=== PATIENT | male | born 1950 | race Caucasian/White ===

== ENCOUNTER 2022-05-28 08:50 | Outpatient (RCR) | payer OTHER, SELFPAY ==
[2022-05-18 10:16] LABS: Appearance Urine Clear (Clear); Bilirubin Urine Negative (Negative); Blood Urine Negative (Negative); Color Urine Yellow (Yellow); Glucose Urine UA 2+ mg/dL (Negative); Ketones Urine Negative (Negative); Leukocyte Esterase Ur Negative LEU/UL (NEGATIVE); Nitrate Urine Negative (Negative); Protein Urine Trace mg/dL (Negative); Urobilinogen Urine 0.2 mg/dL (<2.0)
[2022-05-18 10:21] LABS: Anion Gap 12 mmol/L (8-16); Blood Urea Nitrogen 16 mg/dL (9-20); Calcium 9.1 mg/dL (8.4-10.2); Carbon Dioxide 29 mmol/L (22-30); Chloride 106 mmol/L (98-107); Estimated Glomerular Filt Rate 60; Glucose 128 mg/dL (65-110); Potassium 3.6 mmol/L (3.4-5.0); Sodium 147 mmol/L (137-145)
[2022-05-18 10:39] LABS: Bacteria Urine Trace /hpf; Mucus Urine Rare /lpf; RBC Urine 0-2 /hpf (0-2); WBC Urine 0-3 /hpf (0-3)
[2022-05-18 10:40] LABS: Add Urine Microscopic? YES
[2022-05-21 09:42] LABS: Appearance Urine Clear (Clear); Bilirubin Urine Negative (Negative); Blood Urine Negative (Negative); Color Urine Yellow (Yellow); Glucose Urine UA 3+ mg/dL (Negative); Ketones Urine Negative (Negative); Leukocyte Esterase Ur Negative LEU/UL (NEGATIVE); Nitrate Urine Negative (Negative); Protein Urine 1+ mg/dL (Negative); Specific Grav Ur 1.015 (1.001-1.035)
[2022-05-21 09:51] LABS: Anion Gap 17 mmol/L (8-16); Blood Urea Nitrogen 22 mg/dL (9-20); Calcium 9.8 mg/dL (8.4-10.2); Carbon Dioxide 27 mmol/L (22-30); Chloride 101 mmol/L (98-107); Estimated Glomerular Filt Rate 54; Glucose 79 mg/dL (65-110); Potassium 3.4 mmol/L (3.4-5.0); Sodium 145 mmol/L (137-145)
[2022-05-21 10:11] LABS: Mucus Urine Rare /lpf; RBC Urine 0-2 /hpf (0-2); WBC Urine 0-3 /hpf (0-3)
[2022-05-21 10:48] LABS: Add Urine Microscopic? YES
[2022-05-25 10:16] LABS: Appearance Urine Clear (Clear); Bacteria Urine Trace /hpf; Bilirubin Urine Negative (Negative); Blood Urine Negative (Negative); Color Urine Yellow (Yellow); Glucose Urine UA 3+ mg/dL (Negative); Ketones Urine Negative (Negative); Leukocyte Esterase Ur Negative LEU/UL (NEGATIVE); Nitrate Urine Negative (Negative); Protein Urine Trace mg/dL (Negative); RBC Urine 0-2 /hpf (0-2); Urobilinogen Urine 0.2 mg/dL (<2.0); WBC Urine 0-3 /hpf (0-3); pH Urine 5.5 (5.0-9.0)
[2022-05-25 10:17] LABS: Add Urine Microscopic? YES
[2022-05-25 10:20] LABS: Anion Gap 11 mmol/L (8-16); Blood Urea Nitrogen 22 mg/dL (9-20); Calcium 8.9 mg/dL (8.4-10.2); Carbon Dioxide 24 mmol/L (22-30); Chloride 107 mmol/L (98-107); Estimated Glomerular Filt Rate 50; Glucose 185 mg/dL (65-110); Potassium 3.5 mmol/L (3.4-5.0); Sodium 142 mmol/L (137-145)
[2022-05-28 09:25] LABS: Appearance Urine Clear (Clear); Bilirubin Urine Negative (Negative); Blood Urine Negative (Negative); Color Urine Yellow (Yellow); Glucose Urine UA 2+ mg/dL (Negative); Ketones Urine Negative (Negative); Leukocyte Esterase Ur Negative LEU/UL (NEGATIVE); Nitrate Urine Negative (Negative); Protein Urine Trace mg/dL (Negative); Specific Grav Ur 1.015 (1.001-1.035); pH Urine 5.5 (5.0-9.0)
[2022-05-28 09:36] LABS: Mucus Urine Rare /lpf; RBC Urine 0-2 /hpf (0-2); WBC Urine 0-3 /hpf (0-3)
[2022-05-28 09:37] LABS: Add Urine Microscopic? YES
[2022-05-28 09:41] LABS: Anion Gap 14 mmol/L (8-16); Blood Urea Nitrogen 15 mg/dL (9-20); Calcium 8.9 mg/dL (8.4-10.2); Carbon Dioxide 26 mmol/L (22-30); Chloride 106 mmol/L (98-107); Estimated Glomerular Filt Rate 46; Glucose 146 mg/dL (65-110); Potassium 3.7 mmol/L (3.4-5.0); Sodium 146 mmol/L (137-145)
== END 2022-08-16 23:59 | disposition home or self-care (01) ==
LOC: ANHLAB 08:50
PROVIDERS: Referring Provider Internal Medicine Endocrinology, Diabetes & Metabolism
DX: D35.2 Benign neoplasm of pituitary gland (principal)
CPT/HCPCS: 36415; 80048; 81001

== ENCOUNTER 2022-12-18 22:01 | Emergency (ER) | payer MEDICARE, OTHER, SELFPAY ==
[2022-12-18] VITALS (11 sets, daily range): BP systolic 73–135; BP diastolic 42–95; PULSE 69–88; RESP 16–26; TEMP 35.5; O2SAT 96–98
--- NOTE | ~2022-12-18 | XR_ITS ---
EXAMINATION: XR chest 1V portable DATE: 12/18/2022 22:39 INDICATION: Dyspnea. TECHNIQUE: A single frontal view of the chest was obtained. COMPARISON: Chest single view 02/17/2015 FINDINGS: There is mild atelectasis in the lower lung zones. No pleural effusion or pneumothorax. The heart size is normal. Median sternotomy wires and mediastinal surgical clips are seen, likely from p rior coronary artery bypass grafting. IMPRESSION: 1. Mild atelectasis in the lower lung zones. Reviewed, dictated and finalized at location E.
--- NOTE | 2022-12-18 22:13 | PC.NURSE ---
Pt taken back to room and with blood draw Blood glucose of 47 resulted at bedside.
[2022-12-18 22:18] LABS: Glucose Point of Care 47 mg/dl (65-105)
[2022-12-18 22:25] LABS: Glucose Point of Care 206 mg/dl (65-105)
--- NOTE | 2022-12-18 22:28 | ECG_ITS ---
Measurements Intervals [place] Rate: 73 P: 24 W[place]: 242 QRS: -32 QRSD: 107 T: 78 QT: 413 QTc: 457 Interpretive Statements SINUS RHYTHM WITH FIRST DEGREE AV BLOCK MARKED LEFT AXIS DEVIATION [QRS AXIS < -30] PATTERN CONSISTENT WITH PULMONARY DISEASE NONSPECIFIC T-WAVE ABNORMALITY NO PREVIOUS ECG AVAILABLE FOR COMPARISON Electronically Signed On 12-19-2022 12:14:55 CDT by Ann Marie Luis M.D.
[2022-12-18] MEDS: IPRATROPIUM BR 0.02% INH SOLN 0.5 MG/2.5 ML VIAL INHALATION (22:38)
[2022-12-18] MEDS: LEVALBUTEROL NEB 1.25 MG/3 ML INHALATION (22:38)
[2022-12-18] MEDS: DEXTROSE 50% 25 GM/50 ML SYRINGE IV PUSH (22:40)
--- NOTE | 2022-12-18 22:40 | ED.SOB ---
HPI - SOB/Dyspnea General Chief Complaint: Shortness of Breath/Dyspnea Stated Complaint: SOB, dizzy Time Seen by Provider: 12/18/22 22:18 History of Present Illness HPI Narrative: This is a 72-year-old male with past history of coronary artery disease, diabetes, who presents emergency department complaining of general malaise and shortness of breath for the past 2 days. He denies associated chest pain. He has had dry cough and some nausea with one episode of vomiting. Related Data Allergies Allergy/AdvReac Type Severity Reaction Status Date / Time labetalol Allergy Severe Unknown Verified 12/18/22 22:02 lisinopril Allergy Unknown Unknown Verified 12/18/22 22:02 Review of Systems Review of Systems: CONSTITUTIONAL: Denies fever, chills, or sweats. CARDIOVASCULAR: Denies chest pain, palpitations, or edema. RESPIRATORY: Cough with shortness of breath GASTROINTESTINAL: Denies abdominal pain, nausea, vomiting, or diarrhea. GENITOURINARY: Denies dysuria or hematuria. SKIN: Denies rash or itching. MUSCULOSKELETAL: Denies back pain, joint pain, or myalgia. NEUROLOGIC: Denies headache, numbness, dizziness, or weakness. PSYCHIATRIC: Denies anxiety or depression. PMFSH Past Medical History Medical History Coronary artery disease Diabetes mellitus Hypertension Surgical History Surgical History Hx of CABG Social History Social History (Updated 12/18/22 @ 22:44 by Collin Carballo MD) Smoking status: Former smoker Alcohol intake: current Substance use: never Exam Narrative: GENERAL: Well-developed, well-nourished, and in no acute distress. HEAD: Normocephalic, atraumatic. EYES: PERRLA and EOMI. ENT: Nares clear, no rhinorrhea or epistaxis. Mucous membranes moist. Oropharynx without tonsillar hypertrophy exudate or other lesions. NECK: Supple. No adenopathy or masses. No carotid bruits or JVD CHEST: Transmitted conscious vocal airway sounds. Otherwise clear to auscultation. No respiratory distress. No wheezes rales or rhonchi HEART: Regular rate and rhythm. No murmur heard. Normal peripheral pulses. ABDOMEN: Soft, nontender, nondistended, normal active bowel sounds. EXTREMITIES: Normal range of motion. 1+ bilateral lower extremity edema. SKIN: Warm, dry, no rash. NEURO: No focal deficits. Alert and oriented x3. PSYCH: Normal mood and affect. Course Course Emergency Course: 22:20 - Prior to my evaluation, nursing staff noted the patient was hypoglycemic to 47. On arrival he appeared diaphoretic with a systolic pressure in the 70s. He was given an amp of dextrose. 22:35 - During my evaluation, the patient appeared improved. Repeat blood pressure measured 110/82 followed by systolic 130s. Fingerstick glucose 206. 23:40 - Repeat fingerstick 98. Chest xray not concerning for acute cardiothoracic process. 00:22 - Chemistries demonstrate hyperglycemia, but are otherwise unremarkable. WBC elevated; I suspect this is stress response from hypoglycemia. Troponin negative. EKG not concerning for ischemia. On reevaluation, the patient complains of some headache but otherwise feels improved. Discussed findings and recommendations to follow-up with his primary care doctor about adjusting home diabetes medications. Discussed return and emergency precautions including signs/symptoms of hypoglycemia and ACS. The patient voiced understanding and is comfortable with the plan. All questions answered to his satisfaction. Vital Signs Vital signs: Vital Signs Temperature 96 F L 12/18/22 22:07 Pulse Rate 69 12/18/22 22:07 Respiratory Rate 24 H 12/18/22 22:07 Blood Pressure 73/42 L 12/18/22 22:07 Pulse Oximetry 97 12/18/22 22:07 Oxygen Delivery Room Air 12/18/22 22:07 Temperature 96 F L 12/18/22 22:07 Pulse Rate 76 12/19/22 00:31 Respiratory Rate 21 H 12/19/22 00:31 Blood Press
[2022-12-18 22:41] LABS: Basophils Absolute Auto 0.1 K/mm3 (0.0-0.1); Basophils Percent Auto 0.6 % (0.2-1.2); Eosinophils Absolute Auto 0.2 K/mm3 (0-0.3); Eosinophils Percent Auto 1.3 % (0-4.4); Hematocrit 38.4 % (42.0-52.0); Hemoglobin 12.7 g/dL (14.0-18.0); Immature Granulocyte Absolute 0.06 K/mm3 (0.00-0.031); Immature Granulocyte Percent A 0.4 % (0-0.5); Lymphocytes Percent Auto 21.5 % (18.3-44.2); Mean Corpuscular HGB Conc 33.1 g/dl (32-36); Mean Corpuscular Hemoglobin 28.3 pg (26-34); Mean Corpuscular Volume 85.5 fl (80-100); Monocytes Absolute Auto 1.1 K/mm3 (0.1-0.6); Monocytes Percent Auto 7.7 % (2.6-8.5); Neutrophils Absolute Auto 9.6 K/mm3 (1.3-6.7); Neutrophils Percent Auto 68.5 % (45.5-73.1); Platelet Count Result 315 k/mm3 (150-375); Red Blood Count 4.49 M/mm3 (4.6-6.20); Red Cell Distribution Width 16.4 % (11.5-14.5)
[2022-12-18 23:00] LABS: Alanine Aminotransferase 16 U/L (6-50); Alkaline Phosphatase 95 U/L (38-126); Anion Gap 9 mmol/L (8-16); Aspartate Amino Transferase 22 U/L (17-59); Bilirubin,Total 0.7 mg/dL (0.2-1.3); Blood Urea Nitrogen 17 mg/dL (9-20); Carbon Dioxide 28 mmol/L (22-30); Chloride 104 mmol/L (98-107); Estimated Glomerular Filt Rate 60; Glucose 52 mg/dL (65-110); Magnesium 2.2 mg/dL (1.6-2.3); Potassium 3.5 mmol/L (3.4-5.0); Sodium 141 mmol/L (137-145)
[2022-12-18 23:08] LABS: Troponin I < 0.012 ng/mL (0.000-0.034)
--- NOTE | 2022-12-18 23:18 | PC.NURSE ---
This RN took care of pt at 2318.
[2022-12-18 23:37] LABS: Glucose Point of Care 98 mg/dl (65-105)
--- NOTE | 2022-12-18 23:37 | PC.NURSE ---
Patients repeat BG was 98. ERP notified.
[2022-12-18] MEDS: ONDANSETRON INJ 4 MG/2 ML VIAL IV PUSH (23:53)
[2022-12-19 00:31] VITALS: BP 143/95; PULSE 76; RESP 21; O2SAT 96
[2022-12-19] MEDS: ACETAMINOPHEN 500 MG TABLET 1000 MG PO (00:33)
== END 2022-12-19 01:08 | disposition home or self-care (01) ==
PROVIDERS: Emergency Provider Preventive Medicine Aerospace Medicine
DX: E11.649 Type 2 diabetes mellitus with hypoglycemia without coma (principal); I25.10 Atherosclerotic heart disease of native coronary artery without angina pectoris; I10 Essential (primary) hypertension; Z95.1 Presence of aortocoronary bypass graft; Z87.891 Personal history of nicotine dependence; R94.31 Abnormal electrocardiogram [ECG] [EKG]
CPT/HCPCS: 36415; 71045; 80053; 82948; 83735; 84484; 85025; 93005; 94640; 96374; 96375; 99284; A9270; J2405

== ENCOUNTER 2022-12-19 17:07 | Emergency (ER) | payer MEDICARE, OTHER, SELFPAY ==
[2022-12-19] VITALS (17 sets, daily range): BP systolic 120–144; BP diastolic 67–85; PULSE 45–88; RESP 17–24; TEMP 36.4; O2SAT 95–100
--- NOTE | ~2022-12-19 | CT_ITS ---
EXAMINATION: CTA chest PE protocol DATE: 12/19/2022 19:23 INDICATION: Shortness of breath TECHNIQUE: Computed tomography (CT) pulmonary angiogram of the chest was performed with 100 mL Omnipa que-350 intravenous contrast. Additional 3D reconstructions utilizing coronal maximum intensity proje ction (MIP) were performed. Automated exposure control and iterative reconstruction technique were em ployed. The dose-length product was 925.96 mGy-cm. COMPARISON: None FINDINGS: Excellent contrast opacification of the pulmonary arteries. There is mild streak artifact from dense contrast in the superior vena cava and right atrium. Moderate scattered respiratory motion artifact m ost prominent in the bilateral lower lung zones and dependent midlung zone where it decreases sensiti vity in the smaller subsegmental pulmonary arteries. No pulmonary embolism identified. Very small dep endently layering right pleural effusion minimal to mild dependent atelectasis in bilateral lower lob es. There is bulky mediastinal and right hilar lymphadenopathy. There are additional enlarged lymph n odes along the bilateral lower jugular chains, the largest on the right measuring 5.8 x 4.5 cm most s uspicious for lymphoma with differential including other metastatic disease. Cardiomegaly. Atheroscle rotic coronary artery calcifications. Venous sternotomy wires and changes of prior coronary artery by pass grafting. Thoracic aorta is normal in caliber with no dissection. There are few tiny calcified g allstones in the dependent aspect of the otherwise normal-appearing gallbladder. Reflux of contrast i nto the inferior vena cava and central hepatic veins consistent with tricuspid regurgitation. A few b ilateral <2 mm nonobstructing renal stones. 3.7 cm exophytic lesion at the mid left kidney with heter ogeneous greater than simple fluid attenuation suspicious for renal cell carcinoma. There are few cintia ateral smaller low-attenuation renal cysts. There is calcified atherosclerosis of the aorta and many of the other arteries. There appears to be a severe, >70% stenosis at the origin of the dominant left renal artery. There is a smaller caliber accessory left renal artery supplying the upper pole. Bilat eral gynecomastia. There are bridging osteophytes at multiple levels in the spine, consistent with di ffuse idiopathic skeletal hyperostosis (DISH). IMPRESSION: 1. Bulky mediastinal, right hilar and bilateral inferior cervical lymphadenopathy most concerning for lymphoma with differential including other metastatic disease. Would recommend ultrasound-guided bio psy of the right jugular chain lymph node. 2. No pulmonary embolism. Sensitivity decreased in some of the smaller subsegmental pulmonary arterie s in the lower lungs due to respiratory motion. 3. Cardiomegaly with coronary artery disease. 4. Cholelithiasis. 5. Nonobstructing bilateral nephrolithiasis. 6. 3.7 cm exophytic left renal lesion with heterogeneous greater than simple fluid attenuation concer mike for renal cell carcinoma with differential including complex cyst. Consider further evaluation w ith pre and postcontrast MRI. 7. Likely severe stenosis at the origin of the dominant left renal artery with smaller caliber access ory left renal artery Reviewed, dictated and finalized at location A. IMPRESSION: 1. Bulky mediastinal, right hilar and bilateral inferior cervical lymphadenopat hy most concerning for lymphoma with differential including other metastatic di sease. Would recommend ultrasound-guided biopsy of the right jugular chain lymp h node. 2. No pulmonary embolism. Sensitivity decreased in some of the smaller subsegme ntal pulmonary arteries in the lower lungs due to respiratory motion. 3. Cardiomegaly with coronary artery disease. 4. Cholelithiasis. 5. Nonobstructin
--- NOTE | ~2022-12-19 | XR_ITS ---
EXAMINATION: XR chest 1V portable DATE: 12/19/2022 17:48 INDICATION: Shortness of breath TECHNIQUE: Portable AP view of the chest was obtained. COMPARISON: Chest radiograph dated 12/18/2022 FINDINGS: Unchanged mild streaky left basilar atelectasis. No new airspace opacities, pulmonary edema, pleural effusion or pneumothorax. Heart size is normal. Median sternotomy wires and mediastinal surgical clip s are seen, likely from prior coronary artery bypass grafting. IMPRESSION: 1. Streaky left basilar atelectasis. Reviewed, dictated and finalized at location A.
--- NOTE | 2022-12-19 17:16 | ECG_ITS ---
Measurements Intervals [place] Rate: 71 P: 26 ND: 231 QRS: -44 QRSD: 101 T: 44 QT: 420 QTc: 459 Interpretive Statements SINUS RHYTHM WITH FIRST DEGREE AV BLOCK MARKED LEFT AXIS DEVIATION [QRS AXIS < -30] PATTERN CONSISTENT WITH PULMONARY DISEASE COMPARED TO ECG 12/18/2022 22:32:28 NO SIGNIFICANT CHANGES Electronically Signed On 12-20-2022 13:36:54 CDT by Ann Marie Luis M.D.
--- NOTE | 2022-12-19 17:22 | PC.NURSE ---
Patient purposefully causing self to gasp. Patient coached on proper breathing techniques. Patient able to speak in full and complete sentences without gasping when asked questions.
[2022-12-19 17:25] LABS: Glucose Point of Care 117 mg/dl (65-105)
[2022-12-19 17:43] LABS: Basophils Absolute Auto 0.1 K/mm3 (0.0-0.1); Basophils Percent Auto 0.5 % (0.2-1.2); Eosinophils Absolute Auto 0.1 K/mm3 (0-0.3); Eosinophils Percent Auto 0.6 % (0-4.4); Hematocrit 38.4 % (42.0-52.0); Hemoglobin 12.5 g/dL (14.0-18.0); Immature Granulocyte Absolute 0.05 K/mm3 (0.00-0.031); Immature Granulocyte Percent A 0.4 % (0-0.5); Lymphocytes Absolute Auto 1.62 K/mm3 (0.9-3.2); Lymphocytes Percent Auto 12.5 % (18.3-44.2); Mean Corpuscular HGB Conc 32.6 g/dl (32-36); Mean Corpuscular Hemoglobin 28.5 pg (26-34); Mean Corpuscular Volume 87.5 fl (80-100); Mean Platelet Volume 10.5 fl (7.4-10.4); Monocytes Absolute Auto 0.9 K/mm3 (0.1-0.6); Neutrophils Absolute Auto 10.2 K/mm3 (1.3-6.7); Platelet Count Result 231 k/mm3 (150-375); Red Blood Count 4.39 M/mm3 (4.6-6.20); Red Cell Distribution Width 16.4 % (11.5-14.5); White Blood Count 12.9 K/mm3 (4.5-10.0)
[2022-12-19 17:53] LABS: Base Excess ABG -3.3 mEq/l (+/-2.0); Carboxyhemoglobin 1.3 % THb (0-2.0); Fractional Inspired Oxygen 21 %; HCO3 ABG 20.9 mEq/l (22.0-26.0); Methemoglobin ABG 0.2 %THb (0-1.5); Oxygen Content ABG 17.2 %vol (16.0-22.0); Oxygen Saturation ABG 95.7 % (95.0-100.0); Oxyhemoglobin 93.9 % THb (90.0-100.0); PO2 ABG 78.8 mmHg (80.0-100.0); PO2 FiO2 Ratio Arterial Blood 3.75 %; Reduced Hemoglobin 4.6 %THb (0-5.0); pH ABG 7.394 (7.350-7.450)
[2022-12-19 17:54] LABS: INR 1.1; Prothrombin Time 14.9 Seconds (11.1-14.7)
[2022-12-19 17:54] LABS: Device ROOM AIR; Modified Allen's Test Pass; Site Drawn LEFT RADIAL
[2022-12-19 17:55] LABS: Partial Thromboplastin Time 37.4 SECONDS (22.3-36.8)
[2022-12-19 18:05] LABS: Alanine Aminotransferase 17 U/L (6-50); Albumin Level 4.2 g/dL (3.5-5.1); Alkaline Phosphatase 90 U/L (38-126); Anion Gap 7 mmol/L (8-16); Aspartate Amino Transferase 34 U/L (17-59); Bilirubin,Total 1.1 mg/dL (0.2-1.3); Blood Urea Nitrogen 16 mg/dL (9-20); Calcium 9.2 mg/dL (8.4-10.2); Carbon Dioxide 28 mmol/L (22-30); Chloride 104 mmol/L (98-107); Estimated CRCL calculation 51 ml/min; Estimated Glomerular Filt Rate 60; Glucose 120 mg/dL (65-110); Potassium 4.2 mmol/L (3.4-5.0); Sodium 139 mmol/L (137-145)
[2022-12-19 18:16] LABS: NT Pro B Type Natriuretic Pept 394 pg/mL (19.9-100); Troponin I < 0.012 ng/mL (0.000-0.034)
--- NOTE | 2022-12-19 18:48 | ED.SOB ---
HPI - SOB/Dyspnea General Chief Complaint: Shortness of Breath/Dyspnea Stated Complaint: SOB Time Seen by Provider: 12/19/22 17:19 Source: patient and RN notes reviewed Mode of arrival: ambulatory Limitations: no limitations History of Present Illness HPI Narrative: This is a 72 year old male with history of CABG, hypertension who presents for evaluation of shortness of breath. Patient reports he has been short of breath for 1 month. He states he feels like he can only take shallow breaths. He reported mild dry cough. He denies chest pain or fever. His shortness of breath became worse last night and he was evaluated in ER. He was discharged have having unremarkable labs and EKG. Patient also reports he is having episodes in which his blood pressure drops. He returned today because his blood pressure dropped ton SBP 80s but it is normal in ER. He still continues to have shortness of breath. He denies sore throat. Related Data Allergies Allergy/AdvReac Type Severity Reaction Status Date / Time labetalol Allergy Severe Unknown Verified 12/18/22 22:02 lisinopril Allergy Unknown Unknown Verified 12/18/22 22:02 Review of Systems Constitutional: Constitutional: Reports fatigue and Denies weakness Cardiovascular: Cardiovascular: Denies syncope, Denies rapid heart rate, Denies irregular heart rhythm, Denies leg edema and Reports dyspnea Respiratory: Respiratory: Denies chest congestion, Reports cough, Denies hemoptysis, Denies excessive phlegm production and Reports dyspnea Gastrointestinal: Gastrointestinal: Denies abdominal pain, Denies hematochezia, Denies diarrhea and Denies vomiting Genitourinary: Genitourinary: Denies hematuria, Denies dysuria, Denies penile discharge and Denies testicular pain Musculoskeletal: Musculoskeletal: Denies joint swelling, Denies loss of height and Denies muscle weakness Neurologic: Reports dizziness, Denies syncope, Denies focal weakness and Denies weakness PMFSH Past Medical History Medical History Coronary artery disease Diabetes mellitus Hypertension Surgical History Surgical History Hx of CABG Social History Social History (Updated 12/18/22 @ 22:44 by Collin Carballo MD) Smoking status: Former smoker Alcohol intake: current Substance use: never Exam Const: General: alert Nutritional Appearance: well nourished Orientation/consciousness: patient oriented x3 HENMT: Head: normal to inspection Face and sinus: normal facial exam Eyes: EOM: EOMs intact bilaterally Neck: Neck: normal visual inspection and no lymphadenopathy Resp: Other: patient able to speech in complete full sentence. When no one is in room patient quiet but once in room patient starts to have sounds of stridor although in no distress Cardio: Rate: regular rate Rhythm: regular rhythm Heart sounds: no murmurs GI: GI Palp: Yes Soft to palpation, No Tenderness to palpation present (GI), No Guarding due to palpation present (GI) and No Rigid due to palpation Auscultation: normal bowel sounds Skin: General skin exam: normal color Rashes: no rashes Wounds: no wounds Extrem: General: normal to inspection Psych: Mental Status: mental status grossly normal Affect: normal affect Attitude: cooperative Course Reevaluation(s) Reevaluation #1: I Discussed with patient and family that CT shows lymphadenopathy in his mediastinum that may be cause of his shortness of breath. He states all his care is at [place] so he will need to be transferred Date: 12/19/22 Time: 20:15 Consultations Consultation #1: I Discussed CT findings wit Dr. Maxwell at the [place]. He accepts patient to the [place]. HE request CT reports and disc with imaging. Date: 12/19/22 Time: 21:09 Vital Signs Vital signs: Vital Signs Temperature 97.5 F L 12/19/22 17:13 Pulse Rate 72 12/19/22 17:13 Respiratory Rate
[2022-12-19] MEDS: SODIUM CHLORIDE 0.9% IV 1,000 ML 999 ML IV CONT (19:32)
--- NOTE | 2022-12-19 20:41 | PC.NURSE ---
Spoke to Caitlin MARS) at the OR...they do have a few tele beds available. Faxed chart for review by their doctor at 2028. Their doctor will call once he/she has reviewed.
[2022-12-19 21:20] LABS: SARS-CoV-2 RNA PCR Negative (Negative)
--- NOTE | 2022-12-19 22:52 | PC.NURSE ---
TRANSPORT: [id number]-Called [facility] They would not have anything for at least 4 hours. 2219: Called [facility], they told me that the [facility] has to [facility]. [facility] cannot bill [facility], that patient needs to submit invoice to [facility] insurance after the fact. [facility]-called [facility] back and they said they do NOT do that. (spoke with MARIFER Tucker). Called [facility] back and they set up transport. (see provider communication)
[2022-12-20 00:24] VITALS: BP 144/80; PULSE 68; RESP 23; O2SAT 95
--- NOTE | 2022-12-20 00:27 | PC.NURSE ---
Called Kristopher ESTES at [place] to advise patient and EMS departed our facility 5-10 minutes ago.
== END 2022-12-20 00:28 | disposition short-term general hospital (02) ==
PROVIDERS: Emergency Provider General Practice
DX: R06.00 Dyspnea, unspecified (principal); R59.1 Generalized enlarged lymph nodes; Z20.822 Contact with and (suspected) exposure to COVID-19; I25.10 Atherosclerotic heart disease of native coronary artery without angina pectoris; E11.9 Type 2 diabetes mellitus without complications; I10 Essential (primary) hypertension; Z95.1 Presence of aortocoronary bypass graft; Z87.891 Personal history of nicotine dependence; I44.0 Atrioventricular block, first degree; R94.31 Abnormal electrocardiogram [ECG] [EKG]; K80.20 Calculus of gallbladder without cholecystitis without obstruction; N20.0 Calculus of kidney; N28.89 Other specified disorders of kidney and ureter
CPT/HCPCS: 36415; 36600; 71045; 71275; 80053; 82375; 82805; 82948; 83050; 83880; 84484; 85025; 85380; 85610; 85730; 93005; 96361; 96374; 99285; J1100; J7030; Q9967; U0003; U0005